=== PATIENT | male | born 1945 | race Caucasian/White ===

== ENCOUNTER 2021-03-09 17:12 | Inpatient (IN) | payer OTHER ==
[~2021-03-09] VITALS: Ht 188 cm; Wt 120.2 kg
[2021-03-09 18:52] LABS: HEMOGLOBIN 13.4 gm/dl (14.0-17.5); RED BLOOD COUNT 4.47 M/UL (4.20-5.50); WHITE BLOOD COUNT 11.7 K/UL (4.5-11.0)
[2021-03-10 04:30] LABS: HEMOGLOBIN 13.4 gm/dl (14.0-17.5); RED BLOOD COUNT 4.5 M/UL (4.20-5.50); WHITE BLOOD COUNT 12.7 K/UL (4.5-11.0)
[2021-03-10] MEDS ORDERED: CELECOXIB200 MG PO (12:15)
[2021-03-10] MEDS ORDERED: SPIRIVA HANDIH18 MCG INH (12:15)
[2021-03-10] MEDS ORDERED: LORATADINE10 MG PO (12:15)
[2021-03-10] MEDS ORDERED: METFORMIN HCL500 M2 PO (12:16)
[2021-03-10] MEDS ORDERED: LISINOPRIL20 MG PO (12:16)
[2021-03-10] MEDS ORDERED: CHLORTHALIDONE25 MG PO (12:16)
[2021-03-10] MEDS ORDERED: ZOCOR40 MG PO (12:17)
[2021-03-10] MEDS ORDERED: ASPIRIN EC81 MG PO (12:17)
[2021-03-12 07:16] LABS: HEMOGLOBIN 13.8 gm/dl (14.0-17.5); RED BLOOD COUNT 4.61 M/UL (4.20-5.50); WHITE BLOOD COUNT 15.3 K/UL (4.5-11.0)
[2021-03-12 08:03] LABS: BUN/CREATININE RATIO 31 (0-10)
--- NOTE | 2021-03-12 09:00 | NUR ---
PATIENT NOTED TO BE TACHYPNIEC AT THIS TIME PER RT. CALLED AND MADE AWAWRE AND GAVE NEW ORDERS. WILL CONTINUE TO MONITOR.
[2021-03-13 07:09] LABS: HEMOGLOBIN 13.4 gm/dl (14.0-17.5); RED BLOOD COUNT 4.46 M/UL (4.20-5.50); WHITE BLOOD COUNT 13.5 K/UL (4.5-11.0)
[2021-03-13 07:48] LABS: BUN/CREATININE RATIO 31 (0-10)
[2021-03-14 05:52] LABS: BUN/CREATININE RATIO 40 (0-10)
[2021-03-15 06:09] LABS: BUN/CREATININE RATIO 42 (0-10)
[2021-03-16 06:13] LABS: RED BLOOD COUNT 4.51 M/UL (4.20-5.50); WHITE BLOOD COUNT 13.5 K/UL (4.5-11.0)
[2021-03-16 06:52] LABS: BUN/CREATININE RATIO 38 (0-10)
[2021-03-16 13:15] LABS: BUN/CREATININE RATIO 39 (0-10)
[2021-03-18 04:58] LABS: HEMOGLOBIN 13.1 gm/dl (14.0-17.5); RED BLOOD COUNT 4.56 M/UL (4.20-5.50); WHITE BLOOD COUNT 12.6 K/UL (4.5-11.0)
[2021-03-18 05:14] LABS: BUN/CREATININE RATIO 39 (0-10)
[2021-03-20] MEDS ORDERED: ELIQUIS 5 MG TAB5 MG PO (19:28)
[2021-03-20] MEDS ORDERED: IPRAT-ALBUT 0.5-3 ML NEB (19:28)
[2021-03-20] MEDS ORDERED: LISINOPRIL10 MG PO (19:38)
[2021-03-20] MEDS ORDERED: PROTONIX 40 MG40 M1 PO (19:38)
[2021-03-21 07:59] LABS: HEMOGLOBIN 14.7 gm/dl (14.0-17.5); WHITE BLOOD COUNT 13.5 K/UL (4.5-11.0)
[2021-03-21 08:20] LABS: BUN/CREATININE RATIO 31 (0-10)
[2021-03-23 04:35] LABS: BUN/CREATININE RATIO 31 (0-10)
[2021-03-23 04:54] LABS: HEMOGLOBIN 14.4 gm/dl (14.0-17.5); RED BLOOD COUNT 4.9 M/UL (4.20-5.50); WHITE BLOOD COUNT 17.1 K/UL (4.5-11.0)
[2021-03-23] MEDS ORDERED: LISINOPRIL5 MG PO (18:42)
[2021-03-24 10:12] LABS: HEMOGLOBIN 13.9 gm/dl (14.0-17.5); RED BLOOD COUNT 4.69 M/UL (4.20-5.50); WHITE BLOOD COUNT 14.5 K/UL (4.5-11.0)
[2021-03-24 10:35] LABS: BUN/CREATININE RATIO 35 (0-10)
[2021-03-25 03:47] LABS: HEMOGLOBIN 13.9 gm/dl (14.0-17.5); RED BLOOD COUNT 4.75 M/UL (4.20-5.50); WHITE BLOOD COUNT 17.9 K/UL (4.5-11.0)
[2021-03-25 04:04] LABS: BUN/CREATININE RATIO 37 (0-10)
[2021-03-25] MEDS ORDERED: LEVOFLOXACIN750 MG PO (12:44)
[2021-03-25] MEDS ORDERED: DEX4 GLUCOSE4 GM PO (12:44)
[2021-03-25] MEDS ORDERED: MEDROL DOSEPAK 24 MG PO ×2 (12:49→12:54)
[2021-03-25] MEDS ORDERED: FLOMAX 0.4 MG0.4 MG PO (12:52)
[2021-03-26 05:59] LABS: HEMOGLOBIN 13.7 gm/dl (14.0-17.5); RED BLOOD COUNT 4.62 M/UL (4.20-5.50); WHITE BLOOD COUNT 15.8 K/UL (4.5-11.0)
[2021-03-26 06:17] LABS: BUN/CREATININE RATIO 43 (0-10)
[2021-03-26 18:47] LABS: BUN/CREATININE RATIO 38 (0-10)
[2021-03-27 04:40] LABS: HEMOGLOBIN 13.6 gm/dl (14.0-17.5); RED BLOOD COUNT 4.49 M/UL (4.20-5.50); WHITE BLOOD COUNT 16.6 K/UL (4.5-11.0)
[2021-03-27 05:10] LABS: BUN/CREATININE RATIO 42 (0-10)
[2021-03-27] MEDS ORDERED: ELIQUIS5 MG PO (11:05)
[2021-03-27] MEDS ORDERED: ZESTRIL2.5 MG PO (11:06)
[2021-03-27] MEDS ORDERED: PROTONIX 40 MG40 M1 PO (11:09)
[2021-03-27] MEDS ORDERED: IPRAT-ALBUT 0.5-3 ML NEB (11:09)
[2021-03-27] MEDS ORDERED: LOPRESSOR 25 MG25 MG PO (11:11)
== END 2021-03-27 16:10 | DRG 177 ==
LOC: ER1 17:12 → CDU 23:38 → MED SURG 4 23:38
PROVIDERS: Family Medicine; Internal Medicine; Internal Medicine Nephrology; ADMIT Internal Medicine
PROC: 8E0ZXY6 Isolation (ICD-10-PCS; principal; 2021-03-09)
PROC: XW033E5 Introduction of Remdesivir Anti-infective into Peripheral Vein, Percutaneous Approach, New Technology Group 5 (ICD-10-PCS; 2021-03-09)
PROC: 3E0333Z Introduction of Anti-inflammatory into Peripheral Vein, Percutaneous Approach (ICD-10-PCS; 2021-03-09)
PROC: 5A09357 Assistance with Respiratory Ventilation, Less than 24 Consecutive Hours, Continuous Positive Airway Pressure (ICD-10-PCS; 2021-03-09)
PROC: 5A09357 Assistance with Respiratory Ventilation, Less than 24 Consecutive Hours, Continuous Positive Airway Pressure (ICD-10-PCS; 2021-03-12)
PROC: 5A0945A Assistance with Respiratory Ventilation, 24-96 Consecutive Hours, High Flow/Velocity Cannula (ICD-10-PCS; 2021-03-17)
PROC: 5A0945A Assistance with Respiratory Ventilation, 24-96 Consecutive Hours, High Flow/Velocity Cannula (ICD-10-PCS; 2021-03-19)
PROC: 0T9B70Z Drainage of Bladder with Drainage Device, Via Natural or Artificial Opening (ICD-10-PCS; 2021-03-21)
DX: U07.1 COVID-19 (principal); J12.82 Pneumonia due to coronavirus disease 2019; J80 Acute respiratory distress syndrome; J44.0 Chronic obstructive pulmonary disease with (acute) lower respiratory infection; N17.9 Acute kidney failure, unspecified; E87.1 Hypo-osmolality and hyponatremia; J44.1 Chronic obstructive pulmonary disease with (acute) exacerbation; E86.0 Dehydration; K59.00 Constipation, unspecified; M54.9 Dorsalgia, unspecified; I25.10 Atherosclerotic heart disease of native coronary artery without angina pectoris; L89.151 Pressure ulcer of sacral region, stage 1; T38.0X5A Adverse effect of glucocorticoids and synthetic analogues, initial encounter; I10 Essential (primary) hypertension; R33.8 Other retention of urine; E11.65 Type 2 diabetes mellitus with hyperglycemia; E87.5 Hyperkalemia; H91.90 Unspecified hearing loss, unspecified ear; L89.312 Pressure ulcer of right buttock, stage 2; Z95.1 Presence of aortocoronary bypass graft; Z79.899 Other long term (current) drug therapy; Z79.4 Long term (current) use of insulin; Z79.82 Long term (current) use of aspirin; Z79.84 Long term (current) use of oral hypoglycemic drugs; Z79.01 Long term (current) use of anticoagulants; Z87.891 Personal history of nicotine dependence
CPT/HCPCS: 36415; 36600; 71045; 80048; 80053; 81001; 82436; 82550; 82553; 82728; 82803; 82962; 83036; 83605; 83880; 83935; 84133; 84295; 84300; 84484; 85025; 85027; 85379; 86140; 87040; 87086; 93005; 94640; 94660; 94664; 94760; 96374; 96375; 97161; 97166; 97530-GP-CQ; 99285; J0248; J0456; J0696; J1100; J1650; J1940; J2185; J2543; J2930; J3370; J7030; J7070; U0002